=== PATIENT | female | born 1970 | race Two or more races ===

== ENCOUNTER 2018-08-27 08:54 | Emergency (ER) | payer OTHER ==
[2018-08-27 09:07] VITALS: TEMP 97.9; BMI 25.4
--- NOTE | 2018-08-27 09:34 | PDOC ---
History of Present Illness - General Chief Complaint: Lightheaded Stated Complaint: DIZZINESS Time Seen by Provider: 08/27/18 09:18 History Source: Patient Exam Limitations: No Limitations - History of Present Illness Initial Comments: 08/27/18 09:49 47f with pmh of osteoarthritis and cervical and lumbar discitis presents with vertigo and pressure in the back of the head since waking up this morning. Exacerbated with movement of the head and standing up. Feels unsteady on her feet. Tried taking 50mg of dramamine but with little relief. HAd a similar episode in the past that resolved with dramamine. Denies change in vision, headache, n/v/d, chest pain, palpitations or shortness of breath. No complains of weakness. 08/27/18 10:13 Past History - Past Medical History Allergies/Adverse Reactions: Allergies Allergy/AdvReac Type Severity Reaction Status Date / Time levofloxacin [From Levaquin] Allergy Verified 08/27/18 10:06 Penicillins Allergy Verified 08/27/18 10:06 Home Medications: Ambulatory Orders Simvastatin [Zocor -] 20 mg 01/30/13 Atorvastatin Calcium 40 mg PO tablet 01/25/15 Fenofibric Acid 105 mg PO 08/27/18 Meclizine HCl [Antivert -] 25 mg PO TID #21 tablet 08/27/18 Pantoprazole Sodium [Protonix] 40 mg PO 08/27/18 Pregabalin [Lyrica -] 50 mg PO 08/27/18 Ranitidine [Zantac -] 150 mg PO DAILY 08/27/18 Hypercholesterolemia: Yes - Suicide/Smoking/Psychosocial Hx Smoking Status: No Smoking History: Never smoked Have you smoked in the past 12 months: No Number of Cigarettes Smoked Daily: 0 Information on smoking cessation initiated: No Hx Alcohol Use: No Drug/Substance Use Hx: No Substance Use Type: None Review of Systems - Review of Systems Able to Perform ROS?: Yes Is the patient limited Jordanian proficient: No Constitutional: No: Symptoms Reported HEENTM: No: Symptoms Reported Respiratory: No: Symptoms reported Cardiac (ROS): No: Symptoms Reported ABD/GI: No: Symptoms Reported : No: Symptoms Reported Musculoskeletal: No: Symptoms Reported Integumentary: No: Symptoms Reported Neurological: Yes: See HPI All Other Systems: Reviewed and Negative *Physical Exam - Vital Signs Last Vital Signs Temp Pulse Resp BP Pulse Ox 97.9 F 60 16 105/65 100 08/27/18 09:05 08/27/18 09:05 08/27/18 09:05 08/27/18 09:05 08/27/18 09:05 - Physical Exam General Appearance: Yes: Nourished, Appropriately Dressed. No: Apparent Distress HEENT: positive: EOMI, NAINA, Normal ENT Inspection, Other (vertigo exacerbated on HITS exam) Respiratory/Chest: positive: Lungs Clear, Normal Breath Sounds. negative: Chest Tender, Respiratory Distress Cardiovascular: positive: Regular Rhythm, Regular Rate, S1, S2 Gastrointestinal/Abdominal: positive: Normal Bowel Sounds, Flat, Soft. negative : Tender Musculoskeletal: positive: Normal Inspection. negative: CVA Tenderness Extremity: positive: Normal Capillary Refill, Normal Inspection Integumentary: positive: Normal Color, Dry, Warm Neurologic: positive: Fully Oriented, Alert, Normal Mood/Affect, Normal Response , Motor Strength 5/5 Moderate Sedation - Procedure Monitoring Vital Signs: Procedure Monitoring Vital Signs Temperature 97.9 F 08/27/18 09:05 Pulse Rate 60 08/27/18 09:05 Respiratory Rate 16 08/27/18 09:05 Blood Pressure 105/65 08/27/18 09:05 O2 Sat by Pulse Oximetry (%) 100 08/27/18 09:05 ED Treatment Course - LABORATORY CBC & Chemistry Diagram: 08/27/18 10:41 08/27/18 10:41 Medical Decision Making - Medical Decision Making 08/27/18 10:14 47F with pmh of osteoarthritis presenting with vertigo. Orthostatic hypotension vs BPPV vs central vertigo Positive orthostatics on exam, 60 -> 120 for a few seconds will repeat. Unlikely to be central vertigo/stroke as the patient's symptoms are exacerbated with movement. We will hold on Ct Head. Will only do if patient is not doing better. 08/27/18 12:31 Patient doing better. Ambulates well. Will dc with meclizine rx. *DC/Admit/Observation/Transfer Diagnosis at time of Disposition: Benign paroxysmal positional vertigo - Discharge Dispostion Disposition: HOME Condition at time of disposition: Stable Decision to Admit order: No - Prescriptions Prescriptions: Meclizine HCl [Antivert -] 25 mg PO TID #21 tablet - Referrals Referrals: Gonsalo Burgess [Primary Care Provider] - - Patient Instructions Printed Discharge Instructions: DI for Benign Paroxysmal Positional Vertigo Additional Instructions: Follow up with Dr. Burgess within the next 4 days. Come back to the emergency department for any new, worsening or concerning symptoms. Print Language: DIVEHI - Post Discharge Activity
--- NOTE | 2018-08-27 09:36 | PDOC ---
Attending Attestation - Resident Resident Name: Fabricio Aponte - ED Attending Attestation I have performed the following: I have examined & evaluated the patient, The case was reviewed & discussed with the resident, I agree w/resident's findings & plan, Exceptions are as noted - HPI HPI: 08/27/18 09:57 47yo F hx OA, lumbar/cervical discitis presents to the ED with dizziness since waking up this morning, a/w posterior head pressure and nausea. Reports initially feeling like she was rocking on a boat, now feels like she is lightheaded. Symptoms are made worse with standing and moving. Pt has had similar symptoms in the past that resolve with dramamine. This morning, she tried dramamine with no relief prompting her to come to the ED. Denies headache , just some mild pressure. Denies stiff neck, fevers, chills, focal weakness or numbness. Admits to not staying well hydrated recently. No recent sxs of cough, abd pain, blurry vision, LE edema or pain. - Physicial Exam PE: 08/27/18 10:51 GENERAL: Awake, alert, and fully oriented, in no acute distress EYES: PERRLA, EOMI, sclera anicteric, conjunctiva clear ENT: Nares patent, oropharynx clear without exudates. dry MM NECK: Normal ROM, supple, no lymphadenopathy, JVD, or masses LUNGS: Breath sounds equal, clear to auscultation bilaterally. No wheezes, and no crackles HEART: Regular rate and rhythm, normal S1 and S2, no murmurs, rubs or gallops ABDOMEN: Soft, nontender, normoactive bowel sounds. No guarding, no rebound. No masses EXTREMITIES: Normal range of motion, no edema. No cords, erythema, or tenderness NEUROLOGICAL: Normal speech, cranial nerves intact, negative pronator drift, 5/ 5 strength in all 4 extremities, normal sensation to light touch in all 4 extremities, normal cerebellar exam, normal gait, normal reflexes and tone. Symptoms reproducible (lightheadedness) when standing, HR from 90 -> 123 SKIN: Warm, Dry, normal turgor, no rashes or lesions noted. - Medical Decision Making 08/27/18 10:52 47yo F presents to the ED with positional dizziness since this AM. Vitals unremarkable at rest, but pt is clinically orthostatic. Likely dehydration, but pt also reporting rocking sensation this morning. Plan to treat for vertigo as well, likely peripheral as pt is neuro intact w/o headache. Will given IVF, reglan, meclizine and reassess. If no improvement, will consider head imaging. 08/27/18 12:44 Pt reports complete resolution of symptoms Ambulating in ED with no sxs, well appearing HR 70 -> 76 when standing Requests DC home Likely BPPV, will prescribe meclizine PRN I discussed the physical exam findings, ancillary test results and final diagnoses with the patient. I answered all of the patient's questions. The patient was satisfied with the care received and felt comfortable with the discharge plan and treatment plan. The patient will call their primary care physician within 24 hours to arrange follow-up and will return to the Emergency Department with any new, persistent or worsening symptoms. Heart Score/ECG Review #1 08/27/18 12:48 Twelve-lead EKG was performed and reviewed by me. Sinus bradycardia, rate 56. Normal axis.+ RBBB
[2018-08-27] MEDS ORDERED: MECLIZINE HCL 25 MG TABLET (FP) PO ONE ×2 (10:08→10:45)
[2018-08-27] MEDS ORDERED: ONDANSETRON 4 MG/2 ML VIAL IVPUSH ONE (10:08)
[2018-08-27] MEDS ORDERED: SODIUM CHLORIDE 1,000 ML IV STA (10:09)
[2018-08-27] MEDS ORDERED: MECLIZINE HCL 25 MG TABLET (FP) ONE ×2 (10:14→11:00)
[2018-08-27] MEDS ORDERED: ONDANSETRON 4 MG/2 ML VIAL ONE (10:14)
[2018-08-27] MEDS ORDERED: METOCLOPRAMIDE HCL INJECTION 10 MG/2 ML VIAL IVPUSH ONE (10:19)
[2018-08-27] MEDS ORDERED: METOCLOPRAMIDE HCL INJECTION 10 MG/2 ML VIAL ONE (10:22)
[2018-08-27 11:04] VITALS: BP 125/78; PULSE 69
[2018-08-27 11:09] LABS: BASO % 1.3 % (0-2.0); HEMATOCRIT 31.7 % (32.4-45.2); HEMOGLOBIN 11.2 GM/dL (10.7-15.3); LYMPH % 26.1 % (8-40); MCH 31.6 pg (25.7-33.7); MCHC 35.2 g/dl (32.0-36.0); MEAN CELL VOLUME 89.7 fl (80-96); MEAN PLT VOLUME 9.3 fl (7.5-11.1); MONO % 4.6 % (3.8-10.2); PLATELET COUNT 248 K/MM3 (134-434); RBC 3.54 M/mm3 (3.60-5.2); WHITE BLOOD COUNT 5.3 K/mm3 (4.0-10.0)
[2018-08-27 11:38] LABS: ALBUMIN 3.7 g/dl (3.4-5.0); ALK PHOS 81 U/L (45-117); ANION GAP 9 MMOL/L (8-16); BILIRUBIN,TOTAL 0.2 mg/dL (0.2-1); BLOOD UREA NITROGEN 15 mg/dL (7-18); CALCIUM 8.4 mg/dL (8.5-10.1); CHLORIDE 115 mmol/L (98-107); CO2 21 mmol/L (21-32); CREATININE 0.7 mg/dL (0.55-1.3); GLUCOSE,RANDOM 93 mg/dL (74-106); POTASSIUM 3.8 mmol/L (3.5-5.1); SGOT/AST 15 U/L (15-37); SGPT/ALT 21 U/L (13-61); SODIUM 145 mmol/L (136-145); TOT PROT 6.6 g/dl (6.4-8.2)
[2018-08-27 12:09] LABS: URINE APPEARANCE CLEAR; URINE BILIRUBIN NEGATIVE (<2.0 mg/dL); URINE COLOR COLORLESS; URINE GLUCOSE (UA) NEGATIVE (NEGATIVE); URINE KETONE NEGATIVE (NEGATIVE); URINE LEUK ESTERASE NEGATIVE (NEGATIVE); URINE NITRITE NEGATIVE (NEGATIVE); URINE PROTEIN NEGATIVE (NEGATIVE); URINE UROBILINOGEN NEGATIVE mg/dL (0.2-1.0)
[2018-08-27 12:10] LABS: HCG,QUALITATIVE URINE Negative
== END 2018-08-27 12:54 | disposition home or self-care (01) ==
LOC: JER 08:54
PROC: 3E033GC Introduction of Other Therapeutic Substance into Peripheral Vein, Percutaneous Approach (ICD-10-PCS; principal; 2018-08-27)
PROC: 3E033GC Introduction of Other Therapeutic Substance into Peripheral Vein, Percutaneous Approach (ICD-10-PCS; 2018-08-27)
DX: H81.10 Benign paroxysmal vertigo, unspecified ear (principal); M19.90 Unspecified osteoarthritis, unspecified site
CPT/HCPCS: 36415; 80053; 81003; 84703; 85025; 87086; 96361; 96374; 99282-25; J7030

== ENCOUNTER 2019-10-04 09:45 | Emergency (ER) | payer OTHER ==
[2019-10-04 09:53] VITALS: BP 127/71; PULSE 66; TEMP 98; BMI 25.4
--- NOTE | 2019-10-04 10:18 | PDOC ---
History of Present Illness - General Chief Complaint: Nausea Stated Complaint: NAUSEA/DIZZINESS Time Seen by Provider: 10/04/19 09:58 History Source: Patient Exam Limitations: Clinical Condition - History of Present Illness Initial Comments: 10/04/19 10:37 Patient with no significant past medical history present with complaint of lightheadedness and nausea after using detergent to clean her house and stove. Patient reported she was using the Ajax cleaning chemical and strong chemical to clean the stove and started having lightheaded due to breathing the fumes from the chemicals. Patient report one episode of loose stool which happens every she gets dizzy. Denies vomiting, chest pain, shortness of breath, palpitation, weakness. Denies any other symptoms Is this a multiple visit Asthma Patient?: No Timing/Duration: 1-3 hours Past History - Past Medical History Allergies/Adverse Reactions: Allergies Allergy/AdvReac Type Severity Reaction Status Date / Time levofloxacin [From Levaquin] Allergy Verified 10/04/19 09:53 Penicillins Allergy Verified 10/04/19 09:53 Home Medications: Ambulatory Orders Atorvastatin Calcium 20 mg PO DAILY tablet 01/25/15 Pantoprazole Sodium [Protonix] 40 mg PO DAILY 08/27/18 Pregabalin [Lyrica -] 50 mg PO DAILY 08/27/18 Fenofibrate,Micronized [Fenofibrate] 1 cap PO DAILY 10/04/19 COPD: No Hypercholesterolemia: Yes - Psycho Social/Smoking Cessation Hx Smoking Status: No Smoking History: Unknown if ever smoked Have you smoked in the past 12 months: No Number of Cigarettes Smoked Daily: 0 Information on smoking cessation initiated: No Hx Alcohol Use: No Drug/Substance Use Hx: No Substance Use Type: None Review of Systems - Review of Systems Able to Perform ROS?: Yes Is the patient limited Albanian proficient: No Constitutional: No: Chills, Fever, Malaise HEENTM: No: Symptoms Reported, See HPI, Eye Pain, Blurred Vision, Tearing, Recent change in vision, Double Vision, Cataracts, Ear Pain, Ocular Prothesis, Ear Discharge, Nose Pain, Nose Congestion, Tinnitus, Nose Bleeding, Hearing Loss , Throat Pain, Throat Swelling, Mouth Pain, Dental Problems, Difficulty Swallowing, Mouth Swelling, Other Respiratory: No: Symptoms reported, See HPI, Cough, Orthopnea, Shortness of Breath, SOB with Exertion, SOB at Rest, Stridor, Wheezing, Productive cough, Hemoptysis, Other Cardiac (ROS): No: Symptoms Reported, See HPI, Chest Pain, Edema, Irregular Heart Rate, Lightheadedness, Palpitations, Syncope, Chest Tightness, Other ABD/GI: Yes: Symptoms Reported, See HPI, Diarrhea, Nausea. No: Abd. Pain w/ defecation, Blood Streaked Bowels, Constipated, Difficulty Swallowing, Vomiting , Indigestion, Abdominal cramping Musculoskeletal: No: Symptoms Reported Integumentary: No: Symptoms Reported Neurological: Yes: Headache. No: Symptoms reported, Pre-Existing Deficit All Other Systems: Reviewed and Negative *Physical Exam - Vital Signs Last Vital Signs Temp Pulse Resp BP Pulse Ox 98.0 F 66 16 127/71 100 10/04/19 09:51 10/04/19 09:51 10/04/19 09:51 10/04/19 09:51 10/04/19 09:51 - Physical Exam 10/04/19 10:23 GENERAL: Well developed, well nourished. Awake and alert. No acute distress. HEENT: Normocephalic, atraumatic. PERRLA, EOMI. No conjunctival pallor. Sclera are non-icteric. Moist mucous membranes. Oropharynx is clear. NECK: Supple. Full ROM. CARDIOVASCULAR: Regular rate and rhythm. No murmurs, rubs, or gallops. Distal pulses are 2+ and symmetric. PULMONARY: No evidence of respiratory distress. Lungs clear to auscultation bilaterally. No wheezing, rales or rhonchi. ABDOMINAL: Soft. Non-tender. Non-distended. No rebound or guarding. No organomegaly. Normoactive bowel sounds. MUSCULOSKELETAL Normal range of motion at all joints. SKIN: Warm and dry. Normal capillary refill. No rashes. NEUROLOGICAL: Alert, awake, appropriate. Gait is normal without ataxia. PSYCHIATRIC: Cooperative. Good eye contact. Appropriate mood General Appearance: Yes: Nourished, Appropriately Dressed. No: Apparent Distress Medical Decision Making - Medical Decision Making 10/04/19 10:39 Patient with no significant past medical history present with complaint of lightheadedness and nausea after using detergent to clean her house and stove. Patient reported she was using the Ajax cleaning chemical and strong chemical to clean the stove and started having lightheaded due to breathing the fumes from the chemicals. Patient report one episode of loose stool which happens every she gets dizzy. Denies vomiting, chest pain, shortness of breath, palpitation, weakness. Denies any other symptoms Clinical exam unremarkable. Patient no acute distress. Normal neuro exam. Lungs clear to auscultation bilateral and normal cardio exam. We will give nebulizer treatment with normal saline to help with inhalation and reevaluate after 20 minutes 10/04/19 10:49 Patient reported complete resolve of symptoms after saline inhalation treatment. Patient reported nausea resolved and dizziness is resolved. Patient stable for discharge with strict follow-up. Patient symptoms likely caused by Ajax chemical inhalation and advised to refrain from inhaling chemical when doing cleaning and advised to use mask. Patient stable for discharge Discharge - Discharge Information Problems reviewed: Yes Clinical Impression/Diagnosis: Exposure to chemical inhalation Condition: Improved Disposition: HOME - Admission No - Follow up/Referral Referrals: Gonsalo Burgess [Primary Care Provider] - - Patient Discharge Instructions Additional Instructions: Your symptoms likely was caused by inhalation of the Ajax chemical. Refrain from inhaling chemical. Rest today. Increase fluid intake. Follow-up with primary care. Come back to emergency room if dizziness comes back, shortness of breath, chest pains - Post Discharge Activity
== END 2019-10-04 10:54 | disposition home or self-care (01) ==
LOC: JER 09:45
DX: Z77.098 Contact with and (suspected) exposure to other hazardous, chiefly nonmedicinal, chemicals (principal); T55.1X1A Toxic effect of detergents, accidental (unintentional), initial encounter; R42 Dizziness and giddiness; Y92.030 Kitchen in apartment as the place of occurrence of the external cause; Z88.0 Allergy status to penicillin; Z88.1 Allergy status to other antibiotic agents
CPT/HCPCS: 99283-25

== ENCOUNTER 2021-10-05 11:28 | Emergency (ER) | payer OTHER ==
[2021-10-05 11:32] VITALS: BP 108/69; PULSE 69; TEMP 98.1; BMI 24.2
[2021-10-05] MEDS ORDERED: KETOROLAC TROMETHAMINE 30 MG/1 ML VIAL IVPUSH ONE (12:13)
[2021-10-05] MEDS ORDERED: KETOROLAC TROMETHAMINE 30 MG/1 ML VIAL ONE (12:18)
[2021-10-05 13:09] LABS: BASO % 1.5 % (0-2.0); EOS % 1.8 % (0-4.5); HEMATOCRIT 34.1 % (32.4-45.2); HEMOGLOBIN 11.4 GM/dL (10.7-15.3); LYMPH % 33.5 % (8-40); MCH 30.9 pg (25.7-33.7); MCHC 33.5 g/dl (32.0-36.0); MEAN CELL VOLUME 92.2 fl (80-96); MEAN PLT VOLUME 9.1 fl (7.5-11.1); MONO % 6.8 % (3.8-10.2); NEUT % 56.4 % (42.8-82.8); PLATELET COUNT 324 10^3/uL (134-434); RBC 3.69 M/mm3 (3.60-5.2); WHITE BLOOD COUNT 4.8 K/mm3 (4.0-10.0)
[2021-10-05 13:44] LABS: ALBUMIN 3.9 g/dl (3.4-5.0); BLOOD UREA NITROGEN 17.2 mg/dL (7-18); CALCIUM 9.2 mg/dL (8.5-10.1)
[2021-10-05 13:48] LABS: PH,URINE >= 9.0 (5.0-8.0); URINE APPEARANCE TURBID; URINE BILIRUBIN NEGATIVE (NEGATIVE); URINE COLOR YELLOW; URINE GLUCOSE (UA) NEGATIVE (NEGATIVE); URINE KETONE NEGATIVE (NEGATIVE); URINE LEUK ESTERASE NEGATIVE (NEGATIVE); URINE NITRITE NEGATIVE (NEGATIVE); URINE PROTEIN NEGATIVE (NEGATIVE); URINE UROBILINOGEN 0.2 mg/dL (0.2-1.0)
[2021-10-05 13:48] LABS: CREATININE 0.7 mg/dL (0.55-1.3)
[2021-10-05 13:50] LABS: BILIRUBIN,TOTAL 0.2 mg/dL (0.2-1)
== END 2021-10-05 16:27 | disposition home or self-care (01) ==
LOC: JERFT 11:28 → JER 11:28 → JERFT 16:27
PROC: 3E0333Z Introduction of Anti-inflammatory into Peripheral Vein, Percutaneous Approach (ICD-10-PCS; principal; 2021-10-05)
DX: R10.31 Right lower quadrant pain (principal)
CPT/HCPCS: 36415; 74177-TC; 76830-TC; 80053; 81003; 83690; 84703; 85025; 87086; 99285-25; Q9967